=== PATIENT | male | born 1995 | race African-American/Black ===

== ENCOUNTER 2022-08-16 21:31 | Emergency (ER) | payer SELFPAY ==
[~2022-08-16] VITALS: Ht 167.6 cm; Wt 95.0 kg
[2022-08-16] MEDS: IBUPROFEN 600MG TABLET PO ONE (23:15)
[2022-08-16] MEDS: LIDOCAINE HCL/PF 1% 10 MG/ML 5ML VIAL INFIL ONE (23:15)
[2022-08-16] MEDS: BACITRACIN ZINC OINT UDPKT TOP ONE (23:15)
[2022-08-17] MEDS ORDERED: BO1 TP (00:44)
[2022-08-17] MEDS ORDERED: IBUP-2029 MT (00:44)
[2022-08-17 00:59] VITALS: BP 124/78
== END 2022-08-17 01:08 | disposition home or self-care (01) ==
LOC: ER 21:31
DX: S61.412A Laceration without foreign body of left hand, initial encounter (principal); W25.XXXA Contact with sharp glass, initial encounter; Y93.89 Activity, other specified; Y92.89 Other specified places as the place of occurrence of the external cause; Y99.8 Other external cause status
CPT/HCPCS: 12002; 99283; J3490; Z7610

== ENCOUNTER 2022-08-18 11:18 | Emergency (ER) | payer MEDICAID ==
[~2022-08-18] VITALS: Ht 182.9 cm; Wt 101.0 kg
[~2022-08-18 11:18] MED LIST: BO1 TP; IBUP-2029 MT
[2022-08-18 12:59] VITALS: BP 126/76
== END 2022-08-18 13:00 | disposition home or self-care (01) ==
LOC: ER 11:35
DX: Z48.00 Encounter for change or removal of nonsurgical wound dressing (principal)
CPT/HCPCS: 99281

== ENCOUNTER 2022-08-27 08:25 | Emergency (ER) | payer MEDICAID ==
[~2022-08-27] VITALS: Ht 167.6 cm; Wt 89.0 kg
[2022-08-27 08:27] VITALS: BP 164/96
[2022-08-27] MEDS ORDERED: SULF1TAB48 MT (09:06)
[2022-08-27] MEDS ORDERED: BACITRACIN ZINC OINT UDPKT TOP ONE (09:15)
== END 2022-08-27 09:30 | disposition home or self-care (01) ==
LOC: ER 08:25
DX: L03.114 Cellulitis of left upper limb (principal); Z48.02 Encounter for removal of sutures
CPT/HCPCS: 99282

== ENCOUNTER 2022-08-30 16:45 | Emergency (ER) | payer MEDICAID ==
[~2022-08-30] VITALS: Ht 165.1 cm; Wt 122.0 kg
[~2022-08-30 16:45] MED LIST changes: +SULF1TAB48 MT
[2022-08-30 17:58] VITALS: BP 142/75
== END 2022-08-30 17:59 | disposition home or self-care (01) ==
LOC: ER 17:02
DX: Z48.00 Encounter for change or removal of nonsurgical wound dressing (principal)
CPT/HCPCS: 99281